=== PATIENT | male | born 1955 | race African-American/Black ===

== ENCOUNTER 2023-12-14 19:07 | Emergency (ER) | payer MEDICARE, SELFPAY ==
--- NOTE | ~2023-12-14 | US_ITS ---
EXAMINATION: US VENOUS ULTRASOUND WITH DOPPLER LOWER EXTREMITY, RIGHT CLINICAL INFORMATION: Pain. COMPARISON: None available. TECHNIQUE: Ultrasound of the deep veins is performed from the hip to the calf with compression sonography and color and pulse Doppler assessment. Spectral analysis with color-flow imaging is performed. FINDINGS: There is normal venous compression and respiratory variation and augmented flow. The visualized common femoral vein, superficial femoral vein, profunda femoral vein, popliteal vein, and the trifurcation region shows no evidence of deep venous thrombosis. There is no significant popliteal fossa cyst. US/US venous duplex LE RT IMPRESSION: No DVT demonstrated in the right lower extremity. If the patient's symptoms persist, followup ultrasound in 5 days 7 days might be of value to exclude proximal propagation from a non-visualized calf vein.
[2023-12-14 19:24] VITALS: BP 160/81; PULSE 61; RESP 16; TEMP 36.5; O2SAT 98; BMI 35.7
--- NOTE | 2023-12-14 19:24 | ED_ITS ---
HPI - Extremity Injury (Lower) General Chief Complaint: Extremity Problem Stated Complaint: rt thigh pain Time Seen by Provider: 12/14/23 20:06 Source: patient, RN notes reviewed and old records reviewed Mode of arrival: ambulatory Limitations: no limitations History of Present Illness ED Provider: Mi CAMARGO Narrative: 68-year-old male with past medical history significant for DVT on Xarelto, hypertension presents for evaluation of right leg pain. Patient reports he has had pain for the last 2 days. He reports his pain started after he was using the stationary bike which she does every day. He denies any heavy lifting with his lower extremities. His pain is in his right lateral thigh and worse with moving the leg He denies any posterior upper leg or calf pain He had a left knee replacement about a year ago but no more recent surgeries Denies any recent travel His pain is 12/10 Related Data Previous Rx's ?Medication ?Instructions ?Recorded morphine 15 mg immediate release 15 mg PO Q6H PRN severe pain 12/14/23 tablet (scale score 7-10) #12 tabs Allergies Allergy/AdvReac Type Severity Reaction Status Date / Time pravastatin Allergy Itching Verified 12/14/23 19:27 Review of Systems Constitutional: Constitutional: Denies body ache(s), Denies chills, Denies fever(s) and Denies frequent falls Eyes: Eyes: Denies blurry vision Cardiovascular: Cardiovascular: Denies chest pain and Denies dyspnea Respiratory: Respiratory: Denies cough and Denies dyspnea Gastrointestinal: Gastrointestinal: Denies abdominal pain, Denies nausea and Denies vomiting Musculoskeletal: Musculoskeletal: Denies back pain, Denies arthralgias and Reports muscle cramps Integumentary/Breasts: Skin/Breast: Denies rash Neurologic: Denies frequent falls PMFSH Social History Social History Advance Directives: No Advance Directives Information Provided: No Physical Exam Vital Signs: Vital Signs: Last Vital Signs Temp 97.7 F 12/14/23 19:24 Pulse 61 12/14/23 19:24 Resp 16 12/14/23 19:24 BP 160/81 H 12/14/23 19:24 Pulse Ox 98 12/14/23 19:24 O2 Del Method Room Air 12/14/23 19:24 BMI result Body Mass Index 35.7 Const: General: healthy appearing, no acute distress, alert and awake Nutritional Appearance: well nourished Orientation/consciousness: patient oriented x3 HEENT: Head: Yes normocephalic and Yes atraumatic Eyes: Eyelids: Yes eyelids normal Conjunctivae: conjunctivae normal Sclerae: sclerae normal Corneas: corneas normal Pupils: Equal, round and reactive pupils present EOM: EOMs intact bilaterally Neck: Neck: Yes full ROM Resp: Effort & Inspection: normal respiratory effort, able to speak in complete sentences and not labored Cardio: Rate: regular rate Rhythm: regular rhythm Skin: General skin exam: elasticity normal Neuro: General: patient oriented x3 Cranial nerves: Yes Equal, round and reactive pupils present and Yes Bilaterally intact EOM present Cognition (Neuro): normal cognition Extrem: Other: Right lower extremities warm, dry, well perfused. He has no skin changes to the right lateral thigh in the area of his pain. There was no significant tenderness. The patient does have pain to the right thigh when flexing at the waist and extending the knee. No lower extremity edema on the right. Course Course Course Narrative: This is a Rapid Medical Examination (RME) performed by Jessica Marcos PA-C in triage. Full HPI, ROS, assessment and treatment plan per primary provider in the Main ED. 68 yo male presents to the ER for evaluation of 3 days of worsening right thigh pain that started when he was riding a stationary bike at the gym. hx bilateral knee replacement. tylenol does not improve the pain. pain with walking, sitting and at rest. pain is 8/10. denies swelling. Plan: thigh and extremity exam in [facility] Reevaluation(s) Reevaluation #1: Patient has no significant improvement with tramadol and cyclobenzaprine. He is willing to trial a short course of morphine despite his history opiate abuse. Time: 22:04 Medications Administered Discontinued Medications Generic Name Dose Route Start Last Admin Trade Name Freq PRN Reason Stop Dose Admin Cyclobenzaprine HCl 10 mg 12/14/23 20:31 12/14/23 20:36 Cyclobenzaprine Hcl 10 Mg Tablet PO 12/14/23 20:32 10 mg ONCE ONE Administration Tramadol HCl 50 mg 12/14/23 20:31 12/14/23 20:36 Tramadol Hcl 50 Mg Tablet PO 12/14/23 20:32 50 mg ONCE ONE Administration Medical Decision Making Medical Decision Making MDM Narrative: 68-year-old male presents for evaluation of right leg pain. His pain seems most likely musculoskeletal in origin likely from a pulled muscle and spasms. However he does have a strong history of DVT and we will get an ultrasound to rule out acute DVT. The patient reports he is recovering addict, he is willing to try cyclobenzaprine as well as tramadol for pain instead of oxycodone or morphine IM. There was no major trauma to the leg. No overlying edema or skin changes to suggest infectious process. Differential Diagnosis Differential Diagnoses: The differential diagnosis associated with the presentation includes Right leg pain Muscle strain Contusion DVT Muscle tear Radiology Impression Discussion of test interpretation with radiology: I have reviewed the radiologist's reading. Radiologist Impression: US/US venous duplex LE RT IMPRESSION: No DVT demonstrated in the right lower extremity. If the patient's symptoms persist, followup ultrasound in 5 days 7 days might be of value to exclude proximal propagation from a non-visualized calf vein. Discharge Plan Discharge Clinical Impression: Acute pain of right lower extremity Patient Disposition: Home, Self-Care Instructions: Leg Cramps (ED) Additional Instructions: Your pain is most consistent with muscle spasms. I recommend using Tylenol and cyclobenzaprine as needed for pain. I also recommend warm compresses and attempting to stretch the leg as much as possible. You may use morphine for severe breakthrough pain. This may make you sleepy, do not drink alcohol or drive after taking it Follow-up with your primary doctor Prescriptions: New morphine 15 mg tablet 15 mg PO Q6H PRN (Reason: severe pain (scale score 7-10)) Qty: 12 0RF Rx Instructions: Partial Fill upon patient request. Stand Alone Forms: Work/School Release Print Language: Mongolian
[2023-12-14] MEDS: Cyclobenzaprine HCl 10 MG TABLET PO (20:36)
[2023-12-14] MEDS: traMADoL HCL 50 MG TABLET PO (20:36)
[2023-12-14] MEDS: Morphine Sulfate 4 MG/ML CARTRIDGE IM (22:30)
[2023-12-14 22:39] VITALS: BP 160/81; PULSE 61; RESP 16; TEMP 36.5; O2SAT 98
== END 2023-12-14 22:40 | disposition home or self-care (01) ==
PROVIDERS: Emergency Provider Emergency Medicine; PCP Internal Medicine
DX: M79.604 Pain in right leg (principal)
CPT/HCPCS: 93971; 96372; 99283; 99284; J2270